=== PATIENT | male | born 1990 | race African-American/Black ===

== ENCOUNTER 2018-11-02 03:32 | Emergency (ER) | payer SELFPAY ==
[~2018-11-02] VITALS: Ht 180.3 cm; Wt 100.0 kg
[~2018-11-02 03:32] MED LIST: BACTRIM DS1 TAB PO; LORTAB5 PO
[2018-11-02] MEDS ORDERED: CEPHALEXIN500 M1 PO (03:57)
[2018-11-02] MEDS ORDERED: BACTRIM DS1 TAB PO (03:57)
[2018-11-02 04:19] VITALS: BP 163/80
== END 2018-11-02 04:19 | disposition home or self-care (01) | DRG 603 ==
LOC: ED 03:32
DX: L02.212 Cutaneous abscess of back [any part, except buttock and flank] (principal); B96.4 Proteus (mirabilis) (morganii) as the cause of diseases classified elsewhere; L03.312 Cellulitis of back [any part except buttock and flank]; L70.9 Acne, unspecified; F17.290 Nicotine dependence, other tobacco product, uncomplicated

== ENCOUNTER 2020-06-09 13:00 | Emergency (ER) | payer SELFPAY ==
[~2020-06-09] VITALS: Ht 180.3 cm; Wt 95.0 kg
[~2020-06-09 13:00] MED LIST changes: +CEPHALEXIN500 M1 PO
[2020-06-09] MEDS ORDERED: CEPHALEXIN500 M1 PO (13:53)
[2020-06-09] MEDS ORDERED: BACTRIM DS1 TAB PO (13:53)
[2020-06-09 14:38] VITALS: BP 183/97
== END 2020-06-09 14:46 | disposition home or self-care (01) | DRG 607 ==
LOC: ED 13:00
PROC: 0H96XZZ Drainage of Back Skin, External Approach (ICD-10-PCS; principal; 2020-06-09)
DX: L72.3 Sebaceous cyst (principal); B96.4 Proteus (mirabilis) (morganii) as the cause of diseases classified elsewhere; F17.210 Nicotine dependence, cigarettes, uncomplicated

== ENCOUNTER 2020-06-10 10:46 | Emergency (ER) | payer SELFPAY ==
[~2020-06-10] VITALS: Ht 27.9 cm; Wt 102.7 kg
[2020-06-10 11:47] VITALS: BP 129/72
== END 2020-06-10 11:48 | disposition home or self-care (01) | DRG 951 ==
LOC: ED 10:46
DX: Z48.01 Encounter for change or removal of surgical wound dressing (principal); F17.200 Nicotine dependence, unspecified, uncomplicated

== ENCOUNTER 2020-06-11 12:33 | Emergency (ER) | payer SELFPAY ==
[~2020-06-11] VITALS: Ht 180.3 cm; Wt 101.8 kg
[2020-06-11 13:28] VITALS: BP 146/90
== END 2020-06-11 13:28 | disposition home or self-care (01) | DRG 951 ==
LOC: ED 12:33
DX: Z48.01 Encounter for change or removal of surgical wound dressing (principal); F17.210 Nicotine dependence, cigarettes, uncomplicated

== ENCOUNTER 2020-09-04 07:22 | Emergency (ER) | payer SELFPAY ==
[~2020-09-04] VITALS: Ht 180.3 cm; Wt 92.2 kg
[2020-09-04] MEDS ORDERED: BACTRIM DS1 TAB PO (07:54)
[2020-09-04 08:01] VITALS: BP 172/90
== END 2020-09-04 08:05 | disposition home or self-care (01) | DRG 607 ==
LOC: ED 07:22
DX: L72.9 Follicular cyst of the skin and subcutaneous tissue, unspecified (principal); F17.200 Nicotine dependence, unspecified, uncomplicated

== ENCOUNTER 2020-11-20 16:42 | Emergency (ER) | payer SELFPAY | END 2020-11-20 18:31 | disposition left against medical advice (07) | DRG 951 | LOC: ED 16:42 | DX: Z20.822 Contact with and (suspected) exposure to COVID-19 (principal); F17.200 Nicotine dependence, unspecified, uncomplicated; Z91.19 Patient's noncompliance with other medical treatment and regimen ==

== ENCOUNTER 2021-01-30 22:09 | Emergency (ER) | payer SELFPAY ==
[~2021-01-30] VITALS: Ht 177.8 cm; Wt 100.0 kg
[2021-01-30 22:41] LABS: HEMATOCRIT 46.1 % (39.0-50.0); HEMOGLOBIN 14.6 g/dl (14.0-18.0); IMMATURE GRANULOCYTES 0.2 % (0.0-5.0); MEAN CELL VOLUME 87.3 fL CALC (80.0-100.0); MEAN CORPUSCULAR HGB 27.7 pG CALC (26.0-32.0); MEAN CORPUSCULAR HGB CONC 31.7 g/dL CAL (32.0-36.0); NEUT# 2.56 thou/uL (1.82-7.42); RED BLOOD COUNT 5.28 mill/uL (4.70-6.10); RED CELL DISTRI WIDTH 18.6 % (11.5-15.5)
[2021-01-30 22:47] LABS: ALBUMIN 4.4 g/dL (3.2-5.0); ALKALINE PHOSPHATASE 68 u/l (38-126); AMYLASE 56 u/l (30-110); ANION GAP 10 (6-22 (CALC)); BILIRUBIN, TOTAL 0.3 mg/dL (0.0-1.4); BUN 16 mg/dL (9-20); BUN/CREATININE RATIO 16 (12-20 (CALC)); CARBON DIOXIDE 31 mmol/l (22-30); CHLORIDE 104 mmol/l (95-108); GFR > 60 ML/MIN (>=60 (CALC)); GFR FOR AFR.AMER. > 60 ML/MIN (>=60 (CALC)); LIPASE 138 u/l (23-300); POTASSIUM 3.7 mmol/l (3.5-5.1); SGOT/AST 26 u/l (17-59); SODIUM 142 mmol/l (137-146); TOTAL PROTEIN 7.6 g/dL (6.3-8.2)
[2021-01-30 22:51] LABS: D-DIMER 0.36 mg/L (0.19-0.60)
[2021-01-30 22:55] LABS: ACT PARTIAL THROMBO TIME 27.1 SECONDS (20.0-32.5); INTERNATIONAL NORMALIZED RATIO 0.9 RATIO (0.7-1.3); PROTHROMBIN TIME 9.9 SECONDS (9.0-12.5)
[2021-01-30 22:59] LABS: MYOGLOBIN 31 ng/mL (0 - 121)
[2021-01-30] MEDS ORDERED: AMLODIPINE BESYL5 MG PO (23:19)
[2021-01-30] MEDS ORDERED: PROTONIX40 M2 PO (23:19)
[2021-01-30] MEDS ORDERED: LISINOP/HCTZ1 TAB PO (23:19)
[2021-01-30 23:34] VITALS: BP 160/91
== END 2021-01-30 23:33 | disposition home or self-care (01) | DRG 392 ==
LOC: ED 22:09
PROVIDERS: Family Medicine
DX: K21.9 Gastro-esophageal reflux disease without esophagitis (principal); I10 Essential (primary) hypertension; F17.200 Nicotine dependence, unspecified, uncomplicated

== ENCOUNTER 2022-11-25 22:51 | Observation (INO) | payer SELFPAY ==
[~2022-11-25] VITALS: Ht 177.8 cm; Wt 98.4 kg
[~2022-11-25 22:51] MED LIST changes: +AMLODIPINE BESYL5 MG PO; +LISINOP/HCTZ1 TAB PO; +PROTONIX40 M2 PO
[2022-11-25 22:58] VITALS: BP 211/130
[2022-11-25 23:00] VITALS: BP 173/117
[2022-11-25 23:15] VITALS: BP 177/112
[2022-11-25 23:30] VITALS: BP 155/117
[2022-11-25 23:45] VITALS: BP 161/113
[2022-11-25 23:59] LABS: BASO% 0.3 % (0-3); EOS% 1.6 % (0-8); HEMATOCRIT 45.2 % (39.0-50.0); HEMOGLOBIN 14.7 g/dl (14.0-18.0); IMMATURE GRANULOCYTES 0.5 % (0.0-5.0); LYMPH% 22.4 % (15-41); MEAN CELL VOLUME 85.8 fL CALC (80.0-100.0); MEAN CORPUSCULAR HGB 27.9 pG CALC (26.0-32.0); MEAN CORPUSCULAR HGB CONC 32.5 g/dL CAL (32.0-36.0); MONO% 10.6 % (2-13); NEUT# 6.02 thou/uL (1.82-7.42); NEUT% 64.6 % (42-76); RED BLOOD COUNT 5.27 mill/uL (4.70-6.10); RED CELL DISTRI WIDTH 16.8 % (11.5-15.5)
[2022-11-26] VITALS (41 sets, daily range): BP systolic 138–185; BP diastolic 66–121
[2022-11-26 00:20] LABS: ALBUMIN 4.6 g/dL (3.2-5.0); ALKALINE PHOSPHATASE 70 u/l (38-126); ANION GAP 11 (6-22 (CALC)); BILIRUBIN, TOTAL 0.5 mg/dL (0.2-1.3); BUN 11 mg/dL (9-20); BUN/CREATININE RATIO 12 (12-20 (CALC)); CARBON DIOXIDE 29 mmol/l (22-30); CHLORIDE 106 mmol/l (95-108); CREATININE 0.9 mg/dL (0.7-1.3); GFR FOR AFR.AMER. > 60 ML/MIN (>=60 (CALC)); GFR OTHER RACES > 60 ML/MIN (>=60 (CALC)); POTASSIUM 3.5 mmol/l (3.5-5.1); SGOT/AST 33 u/l (17-59); SODIUM 141 mmol/l (137-146); TOTAL PROTEIN 8.3 g/dL (6.3-8.2)
[2022-11-26] MEDS ORDERED: NORVASC PO (14:30)
[2022-11-26] MEDS ORDERED: BACTRIM DS1 TAB PO (14:34)
== END 2022-11-26 18:50 | disposition home or self-care (01) | DRG 603 ==
LOC: ED 22:51 → ED-I 11-26 02:55 → ED 11-26 03:18 → MS2 11-26 03:19
PROVIDERS: Emergency Medicine; ADMIT Internal Medicine; ATTEND Internal Medicine
PROC: 0H96XZZ Drainage of Back Skin, External Approach (ICD-10-PCS; principal; 2022-11-26)
DX: L02.212 Cutaneous abscess of back [any part, except buttock and flank] (principal); L72.3 Sebaceous cyst; I10 Essential (primary) hypertension; F17.290 Nicotine dependence, other tobacco product, uncomplicated; G47.30 Sleep apnea, unspecified; Z91.199 Patient's noncompliance with other medical treatment and regimen due to unspecified reason
CPT/HCPCS: G0378; J0131; J3370; Q9967

== ENCOUNTER 2023-11-24 12:07 | Emergency (ER) | payer OTHER ==
[~2023-11-24] VITALS: Ht 177.8 cm; Wt 95.0 kg
[~2023-11-24 12:07] MED LIST changes: +NORVASC PO
[2023-11-24] MEDS ORDERED: POVIDONE IODINE 0.5 OZ/BTL TOP STA (12:21)
[2023-11-24] MEDS ORDERED: LIDOcaine HCl 1% (Local Anesth.) 20 ML VIAL STI STA (12:21)
[2023-11-24] MEDS ORDERED: CEPHALEXIN500 M1 PO (12:37)
[2023-11-24 15:34] VITALS: BP 128/78
== END 2023-11-24 15:34 | disposition home or self-care (01) | DRG 603 ==
LOC: ED 12:07
PROC: 0H96XZZ Drainage of Back Skin, External Approach (ICD-10-PCS; principal; 2023-11-24)
DX: L02.212 Cutaneous abscess of back [any part, except buttock and flank] (principal); I10 Essential (primary) hypertension; F17.200 Nicotine dependence, unspecified, uncomplicated

== ENCOUNTER 2023-11-25 14:33 | Emergency (ER) | payer OTHER ==
[~2023-11-25] VITALS: Ht 177.8 cm; Wt 95.5 kg
[2023-11-25 14:41] VITALS: BP 165/104
[2023-11-25 14:43] VITALS: BP 154/100
[2023-11-25 14:45] VITALS: BP 147/104
[2023-11-25 15:01] VITALS: BP 133/82
[2023-11-25 15:17] VITALS: BP 133/82
== END 2023-11-25 15:26 | disposition home or self-care (01) | DRG 951 ==
LOC: ED 14:33
DX: Z48.01 Encounter for change or removal of surgical wound dressing (principal); I10 Essential (primary) hypertension; F17.200 Nicotine dependence, unspecified, uncomplicated

== ENCOUNTER 2023-11-26 15:54 | Emergency (ER) | payer OTHER ==
[~2023-11-26] VITALS: Ht 177.8 cm; Wt 88.0 kg
[2023-11-26 16:13] VITALS: BP 172/115
[2023-11-26 16:31] VITALS: BP 155/101
[2023-11-26 17:01] VITALS: BP 187/117
[2023-11-26 17:11] VITALS: BP 187/117
== END 2023-11-26 17:19 | disposition home or self-care (01) | DRG 951 ==
LOC: ED 15:54
DX: Z48.01 Encounter for change or removal of surgical wound dressing (principal); F17.200 Nicotine dependence, unspecified, uncomplicated

== ENCOUNTER 2023-11-27 15:47 | Emergency (ER) | payer OTHER ==
[~2023-11-27] VITALS: Ht 177.8 cm; Wt 95.2 kg
[2023-11-27 15:51] VITALS: BP 164/110
[2023-11-27 16:16] VITALS: BP 170/104
== END 2023-11-27 16:19 | disposition home or self-care (01) | DRG 951 ==
LOC: ED 15:47
DX: Z48.01 Encounter for change or removal of surgical wound dressing (principal); I10 Essential (primary) hypertension; F17.210 Nicotine dependence, cigarettes, uncomplicated

== ENCOUNTER 2024-04-26 09:25 | Emergency (ER) | payer OTHER ==
[~2024-04-26] VITALS: Ht 180.3 cm; Wt 100.6 kg
[~2024-04-26 09:25] MED LIST changes: +NORVASC5 M1 PO
[2024-04-26 09:34] VITALS: BP 161/109
[2024-04-26] MEDS ORDERED: LIDOcaine HCl 1% (Local Anesth.) 20 ML VIAL STI STA (09:37)
[2024-04-26] MEDS ORDERED: POVIDONE IODINE 0.5 OZ/BTL TOP ONE (09:40)
[2024-04-26 10:01] VITALS: BP 142/90
[2024-05-03] MEDS ORDERED: LOSARTAN (09:44)
== END 2024-04-26 10:22 | disposition home or self-care (01) | DRG 603 ==
LOC: ED 09:25
PROC: 0H96XZZ Drainage of Back Skin, External Approach (ICD-10-PCS; principal; 2024-04-26)
DX: L02.212 Cutaneous abscess of back [any part, except buttock and flank] (principal); I10 Essential (primary) hypertension; F17.200 Nicotine dependence, unspecified, uncomplicated